=== PATIENT | female | born 1990 | race Two or more races ===

== ENCOUNTER 2017-02-16 19:37 | Emergency (ER) | payer OTHER ==
[~2017-02-16] VITALS: Ht 160 cm; Wt 59.0 kg
[2017-02-16 19:37] VITALS: BP 119/82
[2017-02-16] MEDS ORDERED: FLUORESCEIN SODIUM OPHTH 1 EA STRIP ONE (20:17)
[2017-02-16] MEDS ORDERED: TETRACAINE HCL/PF 0.5% UD 2 ML BOTTLE ONE (20:18)
[2017-02-16] MEDS ORDERED: TETRACAINE HCL/PF 0.5% UD 2 ML BOTTLE RIGHTEYE ONE (20:30)
[2017-02-16] MEDS ORDERED: FLUORESCEIN SODIUM OPHTH 1 EA STRIP OP ONE (20:30)
== END 2017-02-16 20:44 | disposition home or self-care (01) ==
LOC: ER 19:47
DX: B99.8 Other infectious disease (principal); H10.89 Other conjunctivitis; B00.1 Herpesviral vesicular dermatitis
CPT/HCPCS: 99283; A4606; Z7610